=== PATIENT | male | born 1970 | race Caucasian/White ===

== ENCOUNTER 2017-06-26 08:10 | Emergency (ER) | payer OTHER ==
[2017-06-26] MEDS ORDERED: Diphtheria,Pertussis(Acell),Tetanus Vaccine 0.5 ML SDV IM ONE (08:40)
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
== END 2017-06-26 09:48 | disposition home or self-care (01) ==
LOC: JP.ED 08:10
DX: S41.112A Laceration without foreign body of left upper arm, initial encounter (principal); T14.8XXA Other injury of unspecified body region, initial encounter; F17.210 Nicotine dependence, cigarettes, uncomplicated; Z23 Encounter for immunization; W45.8XXA Other foreign body or object entering through skin, initial encounter
CPT/HCPCS: 90471; 90715; 99283-25

== ENCOUNTER 2021-10-18 22:20 | Emergency (ER) | payer MEDICAID, OTHER ==
[2021-10-18] MEDS ORDERED: Sodium Chloride 0.9% 10 ML Syringe FLUSH PRN (22:46)
[2021-10-18] MEDS ORDERED: Iopamidol 612 MG/ML 100 ML Bottle IV STA (23:04)
[2021-10-18] MEDS ORDERED: Sodium Chloride 0.9% 50 ML IV STA (23:04)
[2021-10-18] MEDS ORDERED: Tamsulosin 0.4 MG Cap.ER PO ONE (23:54)
== END 2021-10-19 00:18 | disposition home or self-care (01) ==
LOC: JP.ED 22:20
DX: N13.2 Hydronephrosis with renal and ureteral calculous obstruction (principal); F17.210 Nicotine dependence, cigarettes, uncomplicated
CPT/HCPCS: 36415; 74177; 80053; 81001; 85025; 86140; 99284-25; A9270-GY; J3490; Q9967

== ENCOUNTER 2025-05-18 07:07 | Emergency (ER) | payer OTHER, MEDICAID ==
[2025-05-18] MEDS: Ketorolac 30 MG/ML SDV IM ONE (08:12)
== END 2025-05-18 09:09 | disposition home or self-care (01) ==
LOC: JP.ED 07:07
DX: S33.5XXA Sprain of ligaments of lumbar spine, initial encounter (principal); G62.9 Polyneuropathy, unspecified; F17.210 Nicotine dependence, cigarettes, uncomplicated; X50.0XXA Overexertion from strenuous movement or load, initial encounter; Y93.89 Activity, other specified
CPT/HCPCS: 96372; 99283; J1171; J1885